=== PATIENT | female | born 1950 | race Native Hawaiian/Other Pacific Islander ===

== ENCOUNTER 2017-01-02 08:18 | Observation (INO) | payer OTHER ==
[~2017-01-02] VITALS: Ht 152.4 cm; Wt 82.6 kg
[2017-01-02] VITALS (18 sets, daily range): BP systolic 113–140; BP diastolic 60–91; TEMP 97.9–98.5; Ht 152.4 cm; Wt 82.6 kg
[2017-01-02] MEDS ORDERED: ALPR0.5T24 PO (08:32)
[2017-01-02] MEDS ORDERED: HYDR12.54 PO (08:33)
[2017-01-02] MEDS ORDERED: ALORA0.025 MG TD (08:34)
[2017-01-02] MEDS ORDERED: TIROSINT125 MCG OR (08:35)
[2017-01-02] MEDS ORDERED: DULO60CA2 OR ×2 (08:35→08:37)
[2017-01-02] MEDS ORDERED: TRILEPTAL150 MG OR (08:37)
[2017-01-02 09:33] LABS: PLATELET COUNT 331 K/uL (152-353)
[2017-01-02 09:41] LABS: SODIUM 124 mmol/L (136-145)
[2017-01-02 17:12] LABS: POTASSIUM 3.4 mmol/L (3.6-5.2); SODIUM 126 mmol/L (136-145)
[2017-01-02 20:52] LABS: POTASSIUM 3.9 mmol/L (3.6-5.2); SODIUM 128 mmol/L (136-145)
[2017-01-03 00:30] LABS: POTASSIUM 3.6 mmol/L (3.6-5.2); SODIUM 133 mmol/L (136-145)
[2017-01-03 01:00] VITALS: BP 117/68; TEMP 98
[2017-01-03 03:00] VITALS: BP 123/78
[2017-01-03 05:00] VITALS: BP 105/62
[2017-01-03 06:33] LABS: PLATELET COUNT 311 K/uL (152-353)
[2017-01-03 06:35] LABS: SODIUM 134 mmol/L (136-145)
[2017-01-03 08:00] VITALS: BP 121/74; TEMP 98.6
== END 2017-01-03 10:45 | disposition home or self-care (01) ==
LOC: ED 08:18 → ICU 12:25
PROVIDERS: ADMIT Emergency Medicine
DX: E87.1 Hypo-osmolality and hyponatremia (principal); E87.6 Hypokalemia; A04.8 Other specified bacterial intestinal infections; E83.42 Hypomagnesemia
CPT/HCPCS: 36415; 80048; 80053; 80307; 81000; 83735; 85027; 86318; 96372; 99220; 99285; G0378; G0479; J0500; J2060; J2175; J2405; J3490

== ENCOUNTER 2019-11-15 12:58 | Emergency (ER) | payer OTHER ==
[~2019-11-15] VITALS: Ht 160 cm; Wt 90.7 kg
[~2019-11-15 12:58] MED LIST: ALORA0.025 MG TD; ALPR0.5T24 PO; DULO60CA2 OR; HYDR12.54 PO; TIROSINT125 MCG OR; TRILEPTAL150 MG OR
[2019-11-15 14:47] LABS: PLATELET COUNT 294 K/uL (152-353)
[2019-11-15 14:54] LABS: POTASSIUM 3.5 mmol/L (3.6-5.2)
[2019-11-15 20:15] VITALS: TEMP 98.7
[2019-11-16 03:06] VITALS: BP 87/48
== END 2019-11-16 03:24 | disposition short-term general hospital (02) ==
LOC: ED 12:58
PROVIDERS: Family Medicine
DX: A41.9 Sepsis, unspecified organism (principal); N39.0 Urinary tract infection, site not specified; N20.0 Calculus of kidney; I95.89 Other hypotension
CPT/HCPCS: 80053; 81000; 83605; 84484; 85027; 87040; 87077; 87086; 87088; 87186; 93005; 96360; 96361; 96365; 96375; 99285; J0696; J1885